=== PATIENT | male | born 1980 | race African-American/Black ===

== ENCOUNTER 2024-10-01 23:30 | Emergency (ER) | payer OTHER ==
[2024-10-02] MEDS: Diphtheria,Pertussis(Acell),Tetanus Vaccine 0.5 ML Syringe IM ONE (00:43)
[2024-10-02] MEDS: Lidocaine 1% with EPINEPHrine 1:100,000 20 ML MDV INJECT ONE (02:45)
[2024-10-02] MEDS: Lidocaine 1% with EPINEPHrine 1:100,000 10 ML MDV INJECT ONE (02:45)
[2024-10-02] MEDS: Lidocaine 1% with EPINEPHrine 1:100,000 20 ML MDV ONE (02:45)
== END 2024-10-02 03:35 | disposition home or self-care (01) ==
LOC: JD.ED 23:30
DX: S61.412A Laceration without foreign body of left hand, initial encounter (principal); W26.8XXA Contact with other sharp object(s), not elsewhere classified, initial encounter; Y99.0 Civilian activity done for income or pay; Z23 Encounter for immunization
CPT/HCPCS: 12002; 73130; 90471; 90715; 99283; J2004

== ENCOUNTER 2024-10-16 09:07 | Emergency (ER) | payer OTHER | END 2024-10-16 10:00 | disposition home or self-care (01) | LOC: JD.ED 09:07 | DX: S61.412D Laceration without foreign body of left hand, subsequent encounter (principal); X58.XXXD Exposure to other specified factors, subsequent encounter | CPT/HCPCS: 99281 ==